=== PATIENT | male | born 1970 | race Caucasian/White ===

== ENCOUNTER 2016-05-18 08:05 | Outpatient (CLI) | payer BC | END 2016-05-18 23:00 | disposition home or self-care (01) | LOC: RT SRH 08:05 | PROC: 4A02XM4 Measurement of Cardiac Total Activity, External Approach (ICD-10-PCS; principal; 2016-05-18) | DX: R07.89 Other chest pain (principal) ==

== ENCOUNTER 2016-11-13 17:49 | Outpatient (CLI) | payer BC ==
--- NOTE | 2016-11-13 19:39 | DIAGNOSTIC IMAGING REPORT ---
PROCEDURE: XR KNEE 3 VIEWS - RIGHT INDICATION: R KNEE PX TECHNIQUE: Three views. COMPARISON: None. FINDINGS: There mild degenerative changes with a degenerative spurs of the caudal and cranial patella. The rest of the osseous structures and joint spaces are normal. IMPRESSION: 1. Mild degenerative changes. Otherwise negative right knee.
== END 2016-11-13 23:00 ==
LOC: XR SRH 17:49
DX: M25.561 Pain in right knee (principal)